=== PATIENT | female | born 1960 | race Two or more races ===

== ENCOUNTER 2024-10-10 18:45 | Emergency (ER) | payer SELFPAY ==
[2024-10-10 18:46] VITALS: BMI 27.0
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
[2024-10-10 18:59] VITALS: BP 164/96; PULSE 67; RESP 18; TEMP 37.1; O2SAT 99
--- NOTE | 2024-10-10 18:59 | XR_ITS ---
Examination: CT brain head without contrast. 2-D sagittal coronal reconstructions Date and time of exam:October 10, 2024 1938 hrs. Indications: Onset headaches today CTDI: vol (mGy):48.5 DLP: (mGycm):No Technique: Multiple CT axial sections of the brain have been obtained, 5 mm slice thickness. Contrast has not been administered. 2-D sagittal, coronal reconstructions have been obtained Low dose protocols were performed. One or more of the following dose reduction techniques were used; automated exposure control, adjustment of the mA and/or KV according to patient size, use of iterative reconstruction technique. Findings: No significant ventricular enlargement. Intra-axial or extra-axial hemorrhage density is not seen. No mass effect or midline shift Basal cisterns are not remarkable. Fourth ventricle is midline. Cranial vault intact. Impression: Negative for acute hemorrhage, mass effect or midline shift Significant ethmoid chronic sinusitis
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
--- NOTE | 2024-10-10 18:59 | XR_ITS ---
Examination: CT cervical spine without contrast 2-D sagittal reconstructions 2-D coronal reconstructions 3-D reconstructions. Exam date and time:October 10, 2024 1928 hrs. Indications: Onset neck pain today CTDI:vol (mGy) 7.40 DLP: (mGycm) 158 Technique: Multiple 2 mm axial sections of the cervical spine have been obtained. The coronal and sagittal reconstructions have been obtained. 3-D reconstructions have been obtained. Low dose protocols were performed. One or more of the following dose reduction techniques were used; automated exposure control, adjustment of the mA and/or KV according to patient size, use of iterative reconstruction technique. Findings: Axial sections demonstrate intact base of the skull. C1 exhibit satisfactory relationship to the odontoid. No acute cervical vertebral body fracture seen. Alignment posterior spinous processes satisfactory. Impression: No acute cervical fracture.
[2024-10-10] MEDS: ACETAMINOPHEN w/COD 300-30 TABLET 2 TAB PO (19:16)
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
[2024-10-10 21:30] VITALS: RESP 16
== END 2024-10-10 21:30 | disposition home or self-care (01) ==
LOC: SERX 21:49
PROVIDERS: Emergency Provider Emergency Medicine; PCP Physician Assistant
DX: R51.9 Headache, unspecified (principal); R42 Dizziness and giddiness; M54.2 Cervicalgia; M54.9 Dorsalgia, unspecified; J45.909 Unspecified asthma, uncomplicated; Z88.6 Allergy status to analgesic agent; V49.50XA Passenger injured in collision with unspecified motor vehicles in traffic accident, initial encounter; Y92.410 Unspecified street and highway as the place of occurrence of the external cause
CPT/HCPCS: 70450; 71250; 72125; 72128; 72131; 74176; 99284; A9270